=== PATIENT | female | born 1955 | race Caucasian/White ===

== ENCOUNTER → 2019-08-16 | Day surgery (SDC) | payer MEDICAID, MEDICARE ==
[2019-08-16 07:33] VITALS: RESP 16; TEMP 97.6
[2019-08-16 09:19] VITALS: BP 133/80; PULSE 57
--- NOTE | 2019-08-16 13:27 | USB ---
EXAMINATION TYPE: US biopsy breast VAD LT, US biopsy breast VAD RT, MG diagnostic mammo BI wo CAD DATE OF EXAM: 08/16/2019 CLINICAL HISTORY: R92.8 Abnormal Mammogram. TECHNIQUE: Ultrasound guided core biopsy of bilateral breasts. COMPARISON: Outside mammogram dated 07/19/2019 and ultrasound dated 07/23/2019 FINDINGS: The procedure of ultrasound guided core biopsy was explained to the patient. Benefits, alternatives, and risks were discussed. An informed consent was then obtained. Preprocedural timeout was performed. The patient was placed in supine positioning for imaging and for the procedure. The overlying skin was prepped and draped in usual sterile fashion. 10 cc of 1% lidocaine was used as anesthetic into the skin and subcutaneous tissue up to a 4 mm mass at 8:00 position in the left breast. Under ultrasound guidance, a 12-gauge vacuum assisted biopsy gun device was used to obtain 3 core samples. Following this, a coil-shaped biopsy marker was left at the site of biopsy as the mass was no longer visualized after biopsy. The patient was placed in supine positioning for imaging and for the procedure. The overlying skin was prepped and draped in usual sterile fashion. 10 cc of 1% lidocaine was used as anesthetic into the skin and subcutaneous tissue up to a 6 mm mass at the 10:00 position in the right breast. Under ultrasound guidance, a 12-gauge vacuum assisted biopsy gun device was used to obtain 3 core samples. Following this, a ribbon-shaped biopsy marker was left at the site of biopsy as the mass was no longer visualized after biopsy. Postprocedure mammogram demonstrates appropriate placement of the biopsy markers. The right biopsy marker corresponds to an upper outer quadrant right breast mass seen on 3-D imaging. The patient tolerated the procedure well without any immediate complication. The patient was kept in the radiology department for short stay after the procedure and then discharged home in stable condition. IMPRESSION: Successful, uncomplicated ultrasound guided core biopsy of bilateral breast masses (low suspicion), full pathology results to follow. Pathology Results: Benign A. LEFT BREAST AT 8:00, ULTRASOUND GUIDED CORE BIOPSY: Fibrocystic change with cyst wall fragment (negative for atypia). B. RIGHT BREAST AT 10:00, ULTRASOUND GUIDED CORE BIOPSY: Fibrocystic change (negative for atypia). Recommendation Follow up mammogram of both breasts in 6 months. KARYN
== END ==
LOC: RADUSWWP 07:14
PROVIDERS: ATTEND Internal Medicine
DX: N60.12 Diffuse cystic mastopathy of left breast (principal); N60.11 Diffuse cystic mastopathy of right breast
CPT/HCPCS: 88305; 77066; 19083; 19084; A4648; J2001